=== PATIENT | female | born 1980 | race African-American/Black ===

== ENCOUNTER → 2017-12-20 | Outpatient (CLI) | payer BC | END | disposition home or self-care (01) | LOC: US 06:59 | DX: K80.20 Calculus of gallbladder without cholecystitis without obstruction (principal); R79.89 Other specified abnormal findings of blood chemistry | CPT/HCPCS: 76700 ==

== ENCOUNTER → 2018-02-07 | Outpatient (CLI) | payer BC ==
[2018-02-07] MEDS: IOHEXOL 240 MG/ML 50ML VIAL. PO (09:30)
[2018-02-07] MEDS: IOHEXOL 300 MG/ML 100ML VIAL. IV (09:30)
== END | disposition home or self-care (01) ==
LOC: CT 09:19
DX: K80.20 Calculus of gallbladder without cholecystitis without obstruction (principal)
CPT/HCPCS: 74177; Q9966; Q9967